=== PATIENT | male | born 1970 | race Hispanic/Latino ===

== ENCOUNTER 2020-02-27 19:50 | Observation (INO) | payer OTHER ==
[~2020-02-27] VITALS: Ht 182.9 cm; Wt 173.8 kg
[2020-02-27] MEDS ORDERED: CEFTRIAXONE SODIUM 2 GM VIAL ONE (20:59)
[2020-02-27] MEDS ORDERED: AZITHROMYCIN 500MG+NS 250ML 250 ML IV ONE (20:59)
[2020-02-27] MEDS ORDERED: SODIUM CHLORIDE 0.9% 50 ML IV ONE (21:01)
[2020-02-27 21:39] LABS: ABG BASE EXCESS -3.1 mmol/L (-2.0-3.0); ABG HCO3 19.6 mmol/L (21.0-28.0); ABG OXYGEN SATURATION 93.6 % (95.0-99.0); ABG PCO2 30 mmHg (35-48)
[2020-02-27] MEDS ORDERED: METHYLPREDNISOLONE SOD SUCC 40MG/ML 1ML IVP SCH (21:45)
[2020-02-27] MEDS ORDERED: HEPARIN SODIUM 5000UNIT/ML 1ML VIAL SQ SCH (21:45)
[2020-02-27] MEDS ORDERED: AZITHROMYCIN 500MG+NS 250ML 250 ML IV SCH (21:45)
[2020-02-27 22:24] LABS: BASOPHILS % (AUTO) 0.6 % (0.0-5.0); EOSINOPHILS % (AUTO) 0.5 % (0.0-8.0); HEMATOCRIT 44.3 % (42-54); LYMPHOCYTES % (AUTO) 28.4 % (21.0-51.0); MEAN CORPUSCULAR HGB CONC 34.1 g/dL (32.0-36.0); MONOCYTES % (AUTO) 7.8 % (3.0-13.0); NEUTROPHILS % (AUTO) 60.7 % (40.0-77.0); PLATELET COUNT (AUTO) 264 K/uL (130-400); RED BLOOD CELL COUNT(AUTO) 5.21 MIL/uL (4.50-6.20); RED CELL DISTRIBUTION WIDTH 11.9 % (11.0-15.5); WHITE BLOOD COUNT (AUTO) 6.7 K/uL (4.8-10.8)
[2020-02-27 22:38] LABS: INR 0.97 (0.85-1.15); PROTHROMBIN TIME 10.4 SEC (9.6-11.6)
[2020-02-27 22:39] LABS: PARTIAL THROMBOPLASTIN TIME 22.2 SEC (26.3-35.5)
[2020-02-27 22:40] LABS: CARBON DIOXIDE 22 mmol/L (21-32); CHLORIDE 96 mmol/L (101-111); GLOMERULAR FILTR. RATE CALC 84 mL/min (>60); GLUCOSE,RANDOM 325 mg/dL (70-105); POTASSIUM 4.1 mmol/L (3.5-5.1); SODIUM SERUM 134 mmol/L (136-145); UREA NITROGEN, BLOOD 13 mg/dL (7-18)
[2020-02-27 22:48] LABS: ALANINE AMINOTRANSFERASE 39 U/L (12-78); ALBUMIN 3.5 g/dL (3.5-5.0); ASPARTATE AMINOTRANSFERASE 34 U/L (10-37); BILIRUBIN,TOTAL 0.4 mg/dL (0.2-1.0); CREATINE KINASE, TOTAL 89 U/L (21-232); MYOGLOBIN 37 ng/mL (10-92); TOTAL PROTEIN, SERUM 8.4 g/dL (6.0-8.3); TROPONIN I < 0.04 ng/mL (0.00-0.06)
[2020-02-27 23:00] LABS: B-TYPE NATRIURETIC PEPTIDE 6 pg/mL (0-100)
[2020-02-27] MEDS ORDERED: METF-446 PO (23:36)
[2020-02-27] MEDS ORDERED: MULT-1285 PO (23:36)
[2020-02-28] VITALS: BP 129/79
[2020-02-28] MEDS: INSULIN HUMULIN R 100 UNIT/ML 3ML SQ SCH ×4 (02:00→17:03)
[2020-02-28] MEDS ORDERED: INSULIN HUMULIN R 100 UNIT/ML 3ML ONE (02:07)
[2020-02-28] MEDS ORDERED: IOHEXOL 350 MG/ML 100ML INFUS..BTL IV ONE (02:42)
[2020-02-28 04:00] VITALS: BP 117/64
[2020-02-28 05:19] LABS: APPEARANCE,URINE Clear (CLEAR); BILIRUBIN,URINE Negative (NEGATIVE); COLOR,URINE Yellow (YELLOW); GLUCOSE, URINE (UA) >=1000 mg/dL (NEGATIVE); KETONES,URINE >=160 mg/dL (NEGATIVE); LEUKOCYTE ESTERASE ,URINE Trace (NEGATIVE); NITRATE,URINE Negative (NEGATIVE); OCCULT BLOOD,URINE Small (NEGATIVE); PROTEIN,URINE POS 1+ mg/dL (NEGATIVE); UROBILINOGEN,URINE 0.2 mg/dL (0.2-1.0)
[2020-02-28 05:28] LABS: RBC,URINE 0-1 /HPF (0-1)
[2020-02-28 05:29] LABS: BACTERIA,URINE Rare /HPF (None Seen)
[2020-02-28] MEDS ORDERED: INSULIN HUMULIN R 100 UNIT/ML 3ML SQ SCH (07:30)
[2020-02-28] MEDS ORDERED: CEFTRIAXONE SODIUM 1 GM IV SCH (09:00)
[2020-02-28] MEDS ORDERED: FUROSEMIDE 10 MG/ML 4ML VIAL IV SCH (09:00)
[2020-02-28] MEDS: METHYLPREDNISOLONE SOD SUCC 40MG/ML 1ML IVP SCH ×2 (09:17→17:01)
[2020-02-28] MEDS: HEPARIN SODIUM 5000UNIT/ML 1ML VIAL SQ SCH ×2 (09:18→17:02)
[2020-02-28] MEDS ORDERED: DEXA6TAB7 PO (15:46)
[2020-02-28 16:06] LABS: HEMOGLOBIN A1C 10.2 % (4.0-6.0)
[2020-02-28] MEDS ORDERED: AZIT500T4 PO (17:36)
[2020-02-28] MEDS ORDERED: GLIP2.5T2 PO (17:38)
== END 2020-02-28 18:45 | disposition home or self-care (01) ==
LOC: EDH 19:50 → EDHIP 21:31 → 4BH 23:26
PROVIDERS: ADMIT Internal Medicine; ATTEND Internal Medicine
DX: U07.1 COVID-19 (principal); J12.82 Pneumonia due to coronavirus disease 2019; I10 Essential (primary) hypertension; E66.01 Morbid (severe) obesity due to excess calories; R09.02 Hypoxemia; E11.65 Type 2 diabetes mellitus with hyperglycemia; F17.200 Nicotine dependence, unspecified, uncomplicated; Z79.899 Other long term (current) drug therapy; Z91.19 Patient's noncompliance with other medical treatment and regimen; Z68.43 Body mass index [BMI] 50.0-59.9, adult
CPT/HCPCS: 36415 ×2; 36600; 71045; 71275; 80053; 81001; 82550; 82803; 82947; 82948 ×4; 83036; 83605 ×2; 83874; 83880; 84145; 84484; 85025; 85378; 85610; 85730; 86850; 86900; 86901; 87040 ×2; 87088; 87804 ×2; 93005; 94760 ×3; 96372; 96374; 96375; 96376; 99285; G0378 ×20; J0456; J0696 ×2; J1644 ×3; J1815 ×4; J1940; J2920 ×3; Q9967